=== PATIENT | female | born 1990 | race Caucasian/White ===

== ENCOUNTER → 2016-06-05 | Outpatient (CLI) | payer OTHER ==
[2016-06-05 11:07] LABS: MEAN CORPUSCULAR HEMOGLOBIN 29.8 pg (27.0-33.0); MEAN CORPUSCULAR HGB CONC 31.9 g/dl (32.0-36.5); MEAN CORPUSCULAR VOLUME 93.4 fl (80.0-96.0); RED CELL DISTRIBUTION WIDTH 13.2 % (11.5-14.5); WHITE BLOOD COUNT 4.3 K/mm3 (4.0-10.0)
[2016-06-05 11:34] LABS: ALKALINE PHOSPHATASE 55 U/L (45-117); ALT/SGPT 21 U/L (12-78); ANION GAP 2 MEQ/L (8-16); AST/SGOT 19 U/L (15-37); BILIRUBIN,TOTAL 1.4 MG/DL (0.2-1.0); BLOOD UREA NITROGEN 8 MG/DL (7-18); CALCIUM LEVEL 8.6 MG/DL (8.5-10.1); CARBON DIOXIDE LEVEL 30 MEQ/L (21-32); CHLORIDE LEVEL 108 MEQ/L (98-107); CREATININE FOR GFR 0.79 MG/DL (0.55-1.02); GLOMERULAR FILTRATION RATE > 60.0 (>60); GLUCOSE, FASTING 82 MG/DL (70-105); SODIUM LEVEL 140 MEQ/L (136-145)
[2016-06-05 11:35] LABS: ALBUMIN 3.9 GM/DL (3.2-5.2); ALBUMIN/GLOBULIN RATIO 1.05 (1.00-1.93); CHOLESTEROL LEVEL 110 MG/DL (<200); TOTAL PROTEIN 7.6 GM/DL (6.4-8.2); TRIGLYCERIDES LEVEL 60 MG/DL (<150)
== END ==
LOC: M LAB 10:20
PROVIDERS: ATTEND Nurse Practitioner Family
DX: R00.2 Palpitations (principal); R53.83 Other fatigue

== ENCOUNTER → 2016-10-25 | Outpatient (CLI) | payer OTHER ==
[2016-10-25 09:33] LABS: CONTROL LINE HCG INT CTR LINE PRESENT
== END ==
LOC: M LAB 08:46
PROVIDERS: ATTEND Nurse Practitioner Family
DX: Z30.42 Encounter for surveillance of injectable contraceptive (principal)